=== PATIENT | male | born 2005 | race African-American/Black ===

== ENCOUNTER 2024-02-05 08:00 | Emergency (ER) | payer SELFPAY | END 2024-02-05 10:41 | LOC: JD.ED 08:00 | DX: Z53.21 Procedure and treatment not carried out due to patient leaving prior to being seen by health care provider (principal) ==

== ENCOUNTER 2024-07-31 01:59 | Emergency (ER) | payer MEDICAID ==
[2024-07-31] MEDS: Amoxicillin 500 MG Cap PO ONE (04:10)
[2024-07-31] MEDS: Acetaminophen/HYDROcodone 325-5 MG Tab PO ONE (04:10)
== END 2024-07-31 04:13 | disposition home or self-care (01) ==
LOC: JD.ED 01:59
DX: K04.7 Periapical abscess without sinus (principal); Z86.16 Personal history of COVID-19
CPT/HCPCS: 99283; A9270; 99282